=== PATIENT | female | born 1995 | race Caucasian/White ===

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

== ENCOUNTER 2017-03-05 16:27 | Emergency (ER) | payer BC, OTHER ==
[~2017-03-05] VITALS: Ht 147.3 cm; Wt 87.7 kg
[2017-03-05 16:30] VITALS: TEMP 36.8; Ht 147.3 cm; Wt 87.7 kg
[2017-03-05] MEDS ORDERED: AMOX500C3 PO (16:36)
[2017-03-05] MEDS ORDERED: DEXAMETHASONE INJ 10 MG in SYRINGE 0 ML IM ONE (17:15)
[2017-03-05] MEDS ORDERED: RANITIDINE HCL 150 MG TAB PO ONE (17:15)
[2017-03-05] MEDS ORDERED: METH4PAK PO (17:17)
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
[2017-03-05 17:45] VITALS: BP 115/70; PULSE 94; O2SAT 98
== END 2017-03-05 17:46 | disposition home or self-care (01) ==
LOC: C.EDB 16:28 → C.EDD 17:46
DX: L29.9 Pruritus, unspecified (principal); F41.9 Anxiety disorder, unspecified; F32.9 Major depressive disorder, single episode, unspecified; R73.9 Hyperglycemia, unspecified